=== PATIENT | female | born 2000 | race Caucasian/White ===

== ENCOUNTER 2021-12-17 14:04 | Outpatient (CLI) | payer OTHER, SELFPAY ==
--- NOTE | ~2021-12-17 | US_ITS ---
US thyroid INDICATION: Nontoxic thyroid goiter TECHNIQUE: Real-time sonographic images of the thyroid gland were obtained. COMPARISON: No prior studies for comparison. FINDINGS: The right thyroid lobe measures 4.8 x 1.4 x 2.3 cm. The left thyroid lobe measures 5.3 x 1 .9 x 2.5 cm. There is diffusely heterogeneous echotexture and echogenicity throughout the thyroid gla nd. In the left lobe there is a 1.3 x 0.8 x 1.3 cm solid hyperechoic, wider than tall, smoothly nabil nated mass without punctate echogenic foci, TR 3. There is increased vascularity in both lobes. IMPRESSION: 1. Enlarged heterogeneous thyroid gland with increased vascularity, consistent with thyroiditis. 2: Left thyroid nodule measuring 1.3 cm, TR 3. Consider follow-up ultrasound in 12 months. Reviewed, dictated and finalized at location A.
== END 2021-12-17 14:05 | disposition home or self-care (01) ==
PROVIDERS: PCP Family Medicine; Visit Provider Family Medicine
DX: E04.9 Nontoxic goiter, unspecified (principal)
CPT/HCPCS: 76536

== ENCOUNTER 2022-06-23 03:02 | Emergency (ER) | payer OTHER, SELFPAY ==
[2022-06-23 03:04] VITALS: BP 126/71; PULSE 83; RESP 20; TEMP 37; O2SAT 100
--- NOTE | 2022-06-23 04:23 | ED.GENADULT ---
HPI - General Adult General Chief complaint: Allergic Reaction Stated complaint: allergic reaction Time Seen by Provider: 06/23/22 04:11 History of Present Illness HPI narrative: Patient 21-year-old female presents emerged from with chief complaint of medication side effect. Patient reports that she was started on venlafaxine by her primary care provider and states that she took her Adderall today and also took the medication. Patient states that she has been feeling jittery and reports that she feels a little shaky with this. The patient states she feels a little off as well patient denies fever denies clonus denies visual changes Related Data Allergies Allergy/AdvReac Type Severity Reaction Status Date / Time No Known Allergies Allergy Mild Verified 06/23/22 03:58 Review of Systems Review of Systems: A 10 system review of systems was completed on the patient and is negative except for what is stated in the HPI. Nursing and ancillary documentation was reviewed. [facility] Past Medical History Medical History IRENE (generalized anxiety disorder) MDD (major depressive disorder), recurrent episode Family History Family History Other Hypertension Social History Social History Social History: Single Smoking status: Never smoker Second hand tobacco smoke exposure: No Alcohol intake: never Substance use: never Substance use type: does not use Living arrangements: with family Occupation/Education: occupation Gender identity (if verbalized by the patient): Female Exam Narrative: GENERAL: Well-appearing, well-nourished, and in no acute distress. HEAD: Normocephalic, atraumatic. EYES: PERRLA and EOMI. ENT: Nares clear, no rhinorrhea or epistaxis. Mucous membranes moist. NECK: Supple. CHEST: Clear to auscultation. No respiratory distress. HEART: Regular rate and rhythm. No murmur heard. Normal peripheral pulses. ABDOMEN: Soft, nontender, nondistended, normal active bowel sounds. EXTREMITIES: Normal range of motion. No edema. SKIN: Warm, dry, no rash. NEURO: No focal deficits. Alert and oriented x3. PSYCH: Normal mood and affect. Course Vital Signs Vital signs: Vital Signs Temperature 37.0 C 06/23/22 03:04 Pulse Rate 83 06/23/22 03:04 Respiratory Rate 20 06/23/22 03:04 Blood Pressure 126/71 06/23/22 03:04 Pulse Oximetry 100 06/23/22 03:04 Oxygen Delivery Room Air 06/23/22 03:04 Temperature 37.0 C 06/23/22 03:04 Pulse Rate 83 06/23/22 03:04 Respiratory Rate 20 06/23/22 03:04 Blood Pressure 126/71 06/23/22 03:04 Pulse Oximetry 100 06/23/22 03:04 Oxygen Delivery Room Air 06/23/22 03:04 Medical Decision Making MDM Narrative Medical decision making narrative: Differential diagnosis includes serotonin syndrome, medication side effect, The patient is currently not showing any signs of hyperthermia, is not tachycardic showing no signs of clonus or evidence of agitation diaphoresis or hypertonia. And no tremor and no hyperreflexia at this time the patient does not meet criteria for serotonin syndrome. Vital Signs Vital Signs: Vital Signs Temperature 37.0 C 06/23/22 03:04 Pulse Rate 83 06/23/22 03:04 Respiratory Rate 20 06/23/22 03:04 Blood Pressure 126/71 06/23/22 03:04 Pulse Oximetry 100 06/23/22 03:04 Oxygen Delivery Room Air 06/23/22 03:04 Temperature 37.0 C 06/23/22 03:04 Pulse Rate 83 06/23/22 03:04 Respiratory Rate 20 06/23/22 03:04 Blood Pressure 126/71 06/23/22 03:04 Pulse Oximetry 100 06/23/22 03:04 Oxygen Delivery Room Air 06/23/22 03:04 Discharge Plan Discharge Clinical Impression: Medication side effect Patient Disposition: Home, Self-Care Condition: Stable Instructions: Antibiotic F
[2022-06-23 04:34] VITALS: BP 118/69; PULSE 69; RESP 18; TEMP 36.6; O2SAT 99
== END 2022-06-23 04:35 | disposition home or self-care (01) ==
PROVIDERS: Emergency Provider Emergency Medicine; PCP Family Medicine
DX: T88.7XXA Unspecified adverse effect of drug or medicament, initial encounter (principal); T43.215A Adverse effect of selective serotonin and norepinephrine reuptake inhibitors, initial encounter
CPT/HCPCS: 99281

== ENCOUNTER 2022-12-10 15:07 | Outpatient (CLI) | payer OTHER, SELFPAY ==
--- NOTE | ~2022-12-10 | XR_ITS ---
EXAMINATION: XR abdomen obstructive series DATE: 12/10/2022 15:32 INDICATION: Abdominal distention TECHNIQUE: Upright and supine views of the abdomen were obtained. COMPARISON: None. FINDINGS: No free intraperitoneal gas or evidence of bowel obstruction. The bowel gas pattern is norm al. There are phleboliths of the pelvis. IMPRESSION: 1. Nonobstructive bowel gas pattern. Reviewed, dictated and finalized at location F.
== END 2022-12-10 15:08 | disposition home or self-care (01) ==
PROVIDERS: PCP Family Medicine; Visit Provider Family Medicine
DX: R14.0 Abdominal distension (gaseous) (principal)
CPT/HCPCS: 74019

== ENCOUNTER 2023-01-07 10:09 | Outpatient (CLI) | payer OTHER, SELFPAY ==
--- NOTE | ~2023-01-07 | US_ITS ---
Thyroid ultrasound. Clinical History: Nontoxic goiter COMPARISON: 12/17/2021 Findings: Real-time sonography of the thyroid gland was performed. The right lobe measures 5.4 x 2.4 x 2.1 cm. The left lobe measures 5.4 x 2.3 x 2.0 cm. The isthmus is 5 mm in AP diameter. Thyroid parenchyma is diffusely heterogeneous, with relative hypervascularity throughout the gland. T here is a 1.7 x 1.2 x 1.5 cm solid, hyperechoic circumscribed nodule at the left lower pole. Impression: 1.7 cm hyperechoic solid nodule at the left lower pole, mildly increased from prior exam. Continued a nnual follow-up advised. Reviewed, dictated and finalized at location M. Impression: 1.7 cm hyperechoic solid nodule at the left lower pole, mildly increased from p rior exam. Continued annual follow-up advised.
== END 2023-01-07 10:10 | disposition home or self-care (01) ==
PROVIDERS: PCP Family Medicine; Visit Provider Physician Assistant
DX: E04.9 Nontoxic goiter, unspecified (principal)
CPT/HCPCS: 76536

== ENCOUNTER 2023-01-20 19:44 | Emergency (ER) | payer OTHER, SELFPAY ==
--- NOTE | ~2023-01-20 | CT_ITS ---
EXAMINATION: CT abdomen pelvis w con INDICATION: Lower abdominal pain TECHNIQUE: Computed tomographic images of the abdomen and pelvis were obtained after the administrati on of 100 cc of Omnipaque 350 intravenous contrast. The dose-length product (DLP) was 775.45 mGy-cm. Automated exposure control and iterative reconstruction technique were employed. COMPARISON: None available FINDINGS: The lung bases are clear. The heart size is normal. The liver, spleen, pancreas, gallbladde r, and adrenal glands are normal. The kidneys are unremarkable. No pathologically enlarged abdominal or pelvic lymph nodes are identified. No free intraperitoneal gas or evidence of bowel obstruction. T he appendix is normal. A moderate volume of colonic stool is present in the right colon. IMPRESSION: 1. No CT correlate for the patient's symptoms. Reviewed, dictated and finalized at location F.
[2023-01-20 19:45] VITALS: BP 131/81; PULSE 110; RESP 16; TEMP 37.4; O2SAT 100
[2023-01-20 21:04] LABS: Basophils Absolute Auto 0.1 K/mm3 (0.0-0.1); Basophils Percent Auto 0.6 % (0.2-1.2); Eosinophils Absolute Auto 0.1 K/mm3 (0-0.3); Eosinophils Percent Auto 1.5 % (0-4.4); Hematocrit 41.7 % (37.0-47.0); Hemoglobin 13.3 g/dL (12.0-15.0); Immature Granulocyte Absolute 0.02 K/mm3 (0.00-0.031); Immature Granulocyte Percent A 0.2 % (0-0.5); Lymphocytes Absolute Auto 2.42 K/mm3 (0.9-3.2); Lymphocytes Percent Auto 25.4 % (18.3-44.2); Mean Corpuscular HGB Conc 31.9 g/dl (32-36); Mean Corpuscular Hemoglobin 27.9 pg (26-34); Mean Corpuscular Volume 87.4 fl (80-100); Mean Platelet Volume 12.2 fl (7.4-10.4); Monocytes Absolute Auto 0.6 K/mm3 (0.1-0.6); Monocytes Percent Auto 6.1 % (2.6-8.5); Neutrophils Absolute Auto 6.3 K/mm3 (1.3-6.7); Neutrophils Percent Auto 66.2 % (45.5-73.1); Platelet Count Result 256 k/mm3 (150-375); Red Blood Count 4.77 M/mm3 (4.2-5.4); Red Cell Distribution Width 13.9 % (11.5-14.5); White Blood Count 9.5 K/mm3 (4.5-10.0)
[2023-01-20 21:06] VITALS: BP 130/70; PULSE 97; RESP 16; O2SAT 100
[2023-01-20 21:07] LABS: Appearance Urine Clear (Clear); Bilirubin Urine Negative (Negative); Blood Urine Negative (Negative); Color Urine Yellow (Yellow); Glucose Urine UA Negative (Negative); Ketones Urine Trace mg/dL (Negative); Leukocyte Esterase Ur Negative LEU/UL (Negative); Nitrate Urine Negative (Negative); Protein Urine Negative (Negative); Specific Grav Ur 1.013 (1.001-1.035); Urobilinogen Urine 0.2 mg/dL (<2.0); pH Urine 7.5 (5.0-9.0)
[2023-01-20 21:08] LABS: Add Urine Microscopic? NO
[2023-01-20 21:16] LABS: Alanine Aminotransferase 19 U/L (6-35); Albumin Level 5.1 g/dL (3.5-5.1); Alkaline Phosphatase 71 U/L (38-126); Anion Gap 13 mmol/L (8-16); Aspartate Amino Transferase 23 U/L (14-36); Bilirubin,Total 0.6 mg/dL (0.2-1.3); Blood Urea Nitrogen 12 mg/dL (7-17); Calcium 9.8 mg/dL (8.4-10.2); Carbon Dioxide 21 mmol/L (22-30); Chloride 104 mmol/L (98-107); Estimated CRCL calculation 101 ml/min; Estimated Glomerular Filt Rate > 60; Glucose 91 mg/dL (65-110); Lipase 66 U/L (23-300); Potassium 3.9 mmol/L (3.4-5.0); Sodium 138 mmol/L (137-145)
--- NOTE | 2023-01-20 21:37 | ED.ABDPAIN ---
HPI - Abdominal Pain General Chief Complaint: Abdominal Pain Stated Complaint: abd pain Time Seen by Provider: 01/20/23 20:59 Source: patient and family (mother) Limitations: no limitations History of Present Illness HPI narrative: Patient is a 22-year-old female present to the emergency department accompanied by her mother for lower abdominal pain. Patient dates the pain has been present for approximately the past 1 month and she has been seen as an outpatient for this and was told likely constipation and for which has been taking stool softeners and has been having intermittently regular bowel movements but still having persistent pain. Patient was that the pain is constant, unchanged since onset, dull, aching, lower abdominal diffusely, worse when she presses on it, has not noticed any thing making her pain better aside from passing gas, did try ibuprofen this morning without any significant relief, has noticed that it is slightly worse whenever she is on her menstrual cycle, notes that her last menstrual period was a couple weeks ago. Patient admits to 2 episodes of shooting pain in the same region once yesterday and once again this morning that lasted a second and has gone away without any reoccurrence. Patient notes that she is trying to get referral to a GI doctor and satellite tv installer but has not obtained one yet and would like referral. Patient notes that she has also been told she may have reflux and is taking omeprazole regularly. Patient admits to frequent urination but also admits to consuming a lot of water. Patient has tried elimination diets. Patient denies vaginal discharge, vaginal bleeding, dysuria, hematuria, history of kidney stones, urinary urgency, nausea, vomiting, chest pain, shortness of breath, cough, fever, recent injuries, recent illness, back pain, sore throat, weight loss, new or changed medications. Related Data Allergies Allergy/AdvReac Type Severity Reaction Status Date / Time venlafaxine [From Effexor] Allergy Anxiety Verified 01/20/23 20:55 Review of Systems Review of Systems: A 10 system review of systems was completed on the patient and is negative except for what is stated in the HPI. Nursing and ancillary documentation was reviewed. [facility] Past Medical History Medical History IRENE (generalized anxiety disorder) MDD (major depressive disorder), recurrent episode Family History Family History Other Hypertension Social History Social History Social History: Single Smoking status: Never smoker Second hand tobacco smoke exposure: No Alcohol intake: never Substance use: never Substance use type: does not use Lack of Transportation: No Lack of Food: Never True Current Housing: I Have Housing Concerned About Future Housing: No Difficulty Paying Gas/Electric Bills: No Difficulty Paying for Meds: No Currently Unemployed: No Education: Decline to Answer Difficulty w/ Childcare or Family Care: No Living arrangements: with family Occupation/Education: occupation Gender identity (if verbalized by the patient): Female Sexual Orientation (if Verbalized by the Patient): Straight or Heterosexual Comments At time of signature, I have reviewed and agree with nursing past medical, surgical, social and family history unless otherwise noted. Please see the nursing chart for further information. There is no relevant family history pertinent to the presenting complaint. Exam Narrative: CONST: No acute distress. Well nourished. HENMT: Head is normocephalic and atraumatic. Moist mucous membranes. No posterior oropharynx erythema. EYES: No conjunctival icterus, injection, or pallor. PERRL. NECK: No meningeal signs. RESP: Able to speak in full sentences. Normal respiratory effort. CTAB. CARDIO: Regul
--- NOTE | 2023-01-20 23:05 | PC.NURSE ---
Report from AGUSTIN Patel. Awaiting CT results
[2023-01-20 23:36] VITALS: BP 133/78; PULSE 85; RESP 16; O2SAT 99
== END 2023-01-20 23:44 | disposition home or self-care (01) ==
PROVIDERS: Emergency Medicine; Emergency Provider Student in an Organized Health Care Education/Training Program; PCP Family Medicine
DX: K59.00 Constipation, unspecified (principal)
CPT/HCPCS: 36415; 74177; 80053; 81003; 81025; 83690; 85025; 99284; Q9967

== ENCOUNTER 2023-07-06 01:19 | Day surgery (SDC) | payer OTHER, SELFPAY ==
[2023-06-21 12:45] VITALS: BMI 33.7
--- NOTE | 2023-07-06 11:34 | P.PNAN_ITS ---
Anes - Initial Pre Proc Eval Procedure: Operation Date: 07/06/23 14:30 Proposed Procedures p Esophagogastroduodenoscopy & Colonoscopy - James Quezada MD Date/Time: 07/06/23 11:34 Surgeon: James Quezada MD Pre Op Diagnosis: Change in bowel habit, right lower quadrant pain, Patient Data Age: 22 Gender: F Height: 1.6 m Weight: 86.5 kg Allergies Allergy/AdvReac Type Severity Reaction Status Date / Time venlafaxine [From Effexor] AdvReac Mild Anxiety Verified 07/06/23 11:37 Home Medications Medication Instructions Recorded Confirmed Type polyethylene glycol 3350 17 17 g PO DAILY #119 grams 01/20/23 06/21/23 Rx gram/dose oral powder (Miralax) sertraline 50 mg tablet (Zoloft) 50 mg PO DAILY 05/10/23 06/21/23 History linaclotide 72 mcg capsule 72 mcg PO DAILY 1 month #30 caps 06/09/23 06/21/23 Rx (Linzess) omeprazole 40 mg capsule,delayed See Rx Instructions .Route 07/04/23 Rx release .COMPLEX #90 caps Patient hx anesthesia problems: none Family hx anesthesia problems: none Results Review: All pre-operative results and documents have been reviewed as part of the pre- operative evaluation. [facility] Past Medical History Medical History (Updated 06/01/23 @ 10:54 by ROSITA AceN-C) Bilateral lower abdominal cramping Bowel habit changes Epigastric pain IRENE (generalized anxiety disorder) Loose stools MDD (major depressive disorder), recurrent episode Nausea Family History Family History Other Hypertension Social History Social History Social History: Single Smoking status: Never smoker Second hand tobacco smoke exposure: No Alcohol intake: never Alcohol use details: occasional Substance use: current Substance use type: marijuana Other substance usage details: 2-3 times week Lack of Transportation: No Lack of Food: Never True Current Housing: I Have Housing Concerned About Future Housing: No Difficulty Paying Gas/Electric Bills: No Difficulty Paying for Meds: No Currently Unemployed: No Education: Decline to Answer Difficulty w/ Childcare or Family Care: No Living arrangements: with family Occupation/Education: occupation Gender identity (if verbalized by the patient): Female Sexual Orientation (if Verbalized by the Patient): Straight or Heterosexual Spiritual care concerns: No Anes - Eval Final PreProcedure Day of Procedure 07/06/23 11:34 Patient weight: obese Heart: regular rate and rhythm Lungs: clear to auscultation Airway: Mallampati scale class II Neurological: alert and oriented Last oral intake: >/= 8 hours ASA classification: II Emergent: no Anesthetic plan: proceed Anesthesia type and monitoring: general GIVS and standard monitoring Other findings: Change in bowel habits, abdominal pain, now for EGD/colonscopy. Results Review: All pre-operative results and documents have been reviewed as part of the pre- operative evaluation. Informed Consent: The patient's anesthetic plan and its attendant risks and benefits were discussed with the patient/family/POA. Questions were solicited and answers provided to the satisfaction of the patient/family/POA.
[2023-07-06 11:37] VITALS: BP 116/75; PULSE 79; RESP 19; TEMP 36.5; O2SAT 100
[2023-07-06] MEDS: LACTATED RINGERS 1,000 ML 150 ML IV CONT (11:49)
--- NOTE | 2023-07-06 11:58 | PM.HPGS ---
History of Present Illness History of Present Illness Consent: Risks, benefits, and alternatives have been discussed and questions answered. Patient agrees to proceed with procedure. Chief complaint: Change in bowel habit, right lower quadrant pain, Narrative: May Damon is a 22 year old female here for egd and colonoscopy, never had scopes. History of GERD on ppi, also constipation with intermittent abdominal pain using linzess. Review of Systems Review of Systems: All systems reviewed & are unremarkable except as noted in HPI and below PMFSH Past Medical History Medical History (Updated 06/01/23 @ 10:54 by Tri Graham APN-C) Bilateral lower abdominal cramping Bowel habit changes Epigastric pain IRENE (generalized anxiety disorder) Loose stools MDD (major depressive disorder), recurrent episode Nausea Family History Family History Other Hypertension Social History Social History Social History: Single Smoking status: Never smoker Second hand tobacco smoke exposure: No Alcohol intake: never Alcohol use details: occasional Substance use: current Substance use type: marijuana Other substance usage details: 2-3 times week Lack of Transportation: No Lack of Food: Never True Current Housing: I Have Housing Concerned About Future Housing: No Difficulty Paying Gas/Electric Bills: No Difficulty Paying for Meds: No Currently Unemployed: No Education: Decline to Answer Difficulty w/ Childcare or Family Care: No Living arrangements: with family Occupation/Education: occupation Gender identity (if verbalized by the patient): Female Sexual Orientation (if Verbalized by the Patient): Straight or Heterosexual Spiritual care concerns: No Meds Home Medications and Allergies Home Medications Medication Instructions Recorded Confirmed Type polyethylene glycol 3350 17 17 g PO DAILY #119 grams 01/20/23 06/21/23 Rx gram/dose oral powder (Miralax) sertraline 50 mg tablet (Zoloft) 50 mg PO DAILY 05/10/23 06/21/23 History linaclotide 72 mcg capsule 72 mcg PO DAILY 1 month #30 caps 06/09/23 06/21/23 Rx (Linzess) omeprazole 40 mg capsule,delayed See Rx Instructions .Route 07/04/23 Rx release .COMPLEX #90 caps Allergies Allergy/AdvReac Type Severity Reaction Status Date / Time venlafaxine [From Effexor] AdvReac Mild Anxiety Verified 07/06/23 11:37 Vital Signs Vital Signs - 24 hr 07/06/23 11:37 Temperature 97.7 F Pulse Rate 79 Respiratory Rate 19 Blood Pressure 116/75 Pulse Oximetry 100 Oxygen Delivery Room Air Exam Const: General: comfortable and no acute distress HENMT: Face/Nose/Sinus: Normal nares present Eyes: General: appearance normal, both eyes and all related structures Neck: Neck: no JVD Resp: Auscultation: clear to auscultation bilaterally Cardio: Rate: regular rate Rhythm: regular rhythm GI: Inspection: non-distended GI Palp: Yes Soft to palpation Skin: General skin exam: normal color Neuro: General: gait normal Speech: normal speech Extrem: General: normal to inspection Psych: Mental Status: mental status grossly normal Assessment and Plan Assessment and plan (1) Epigastric pain: Code(s): R10.13 - Epigastric pain Status: Acute Assessment and Plan: egd with bx (2) Bloating: Code(s): R14.0 - Abdominal distension (gaseous) Status: Acute (3) Constipation: Qualifiers: Constipation type: unspecified constipation type Qualified Code(s): K59.00 - Constipation, unspecified Code(s): K59.00 - Constipation, unspecified Status: Inactive Assessment and Plan: colonoscopy (4) Abdominal pain: Qualifiers: Abdominal location: lower abdomen, unspecified Qualified Code(s): R10.30 - Lower abdominal pain, unspecified
[2023-07-06] MEDS: BENZOCAINE (*SP) 60 ML SPRAY CAN (HURRICAINE) 1 SPRAY MUCOUS MEM (12:03)
--- NOTE | 2023-07-06 12:16 | SUR.OPER ---
EGD ended 1210, colonoscopy stared 121
[2023-07-06 12:28] VITALS: BP 100/54; PULSE 70; RESP 21; O2SAT 100
[2023-07-06 12:38] VITALS: BP 116/58; PULSE 60; RESP 17; O2SAT 100
[2023-07-06 12:48] VITALS: BP 113/66; PULSE 58; RESP 18; O2SAT 100
== END 2023-07-06 13:04 | disposition home or self-care (01) ==
PROVIDERS: PCP Family Medicine; Visit Provider Internal Medicine Gastroenterology
PROC: 0DJ08ZZ Inspection of Upper Intestinal Tract, Via Natural or Artificial Opening Endoscopic (ICD-10-PCS; CPT 43235; principal; 2023-07-06 14:30)
DX: K21.00 Gastro-esophageal reflux disease with esophagitis, without bleeding (principal); K59.00 Constipation, unspecified; F41.1 Generalized anxiety disorder; F33.9 Major depressive disorder, recurrent, unspecified; F12.90 Cannabis use, unspecified, uncomplicated; E66.9 Obesity, unspecified; Z68.35 Body mass index [BMI] 35.0-35.9, adult
CPT/HCPCS: 45378; 43239; 88305; J2704; J7120

== ENCOUNTER 2023-07-26 13:45 | Outpatient (CLI) | payer OTHER, SELFPAY ==
--- NOTE | ~2023-07-26 | XR_ITS ---
XR abdomen/kub 1V 07/26/2023 14:03 INDICATION: Right lower quadrant pain TECHNIQUE: KUB COMPARISON: 12/10/2022 FINDINGS: Bowel gas pattern is normal. There is no evidence of free air, mass, organomegaly, ascites or obstruction. No abnormal calculi are seen. There are pelvic phleboliths. The bones appear intact . IMPRESSION: 1: No acute abdominal abnormality identified. Reviewed, dictated and finalized at location B.
== END 2023-07-26 13:46 | disposition home or self-care (01) ==
PROVIDERS: PCP Family Medicine; Visit Provider Nurse Practitioner Family
DX: R10.31 Right lower quadrant pain (principal)
CPT/HCPCS: 74018

== ENCOUNTER 2023-10-02 18:19 | Emergency (ER) | payer OTHER, SELFPAY ==
--- NOTE | ~2023-10-02 | CT_ITS ---
Clinical Indication: Pulmonary embolus CT Scan of the Chest with Contrast: Technique: Contiguous sections were acquired throughout the chest after intravenous administration of 100 cc of Omnipaque 350. Dose reduction technique was used on this scan by utilizing automated expos ure control and iterative reconstruction technique. The dose-length product (DLP) was 571.37 mGy-cm. Findings: There is no evidence of any significant mediastinal, hilar or axillary lymphadenopathy. There is no f illing defect in the pulmonary arterial tree to suggest pulmonary embolus. There is no evidence of ao rtic dissection or aneurysm. There is no evidence of pleural or pericardial effusion. There is dense consolidation of the lingula. No other pulmonary abnormality seen. Images through the upper abdomen reveal no abnormalities. Impression: No evidence of pulmonary embolus, aortic dissection, or aortic aneurysm. Lingular pneumonia versus atelectasis. Correlate clinically. Reviewed, dictated and finalized at [facility]. Impression: No evidence of pulmonary embolus, aortic dissection, or aortic aneurysm. Lingular pneumonia versus atelectasis. Correlate clinically.
--- NOTE | ~2023-10-02 | XR_ITS ---
EXAMINATION: XR chest 2V Exam Date/Time: 10/02/2023 21:42 CDT HISTORY: shortness of breath, Pt states she has covid Comparison: 01/08/2013. RESULT: Lines, tubes, and devices: None. Lungs and pleura: Clear. Cardiomediastinal silhouette: Stable. Other: No acute osseous or upper abdominal finding. IMPRESSION: No acute cardiopulmonary process. Reviewed, dictated and finalized at location K.
--- NOTE | ~2023-10-02 | XR_ITS ---
EXAM: XR shoulder LT min 2V DATE: 10/02/2023 21:49 HISTORY: pain . COMPARISON: X-ray chest 01/08/2013. FINDINGS: Normal mineralization. No fracture or dislocation. No lytic or blastic lesion. Joint space s are maintained. No erosion or periosteal change. Soft tissues within normal limits. IMPRESSION: No acute osseous finding in the left shoulder. Reviewed, dictated and finalized at location K.
[2023-10-02 18:20] VITALS: BP 121/81; PULSE 143; RESP 18; TEMP 36.7; O2SAT 99
--- NOTE | 2023-10-02 18:29 | ECG_ITS ---
Test Date: 2023-10-02 18:37:45 Measurements Intervals [place] Rate: 138 P: 56 WV: 128 QRS: 25 QRSD: 88 T: 39 QT: 329 QTc: 499 Interpretive Statements SINUS TACHYCARDIA NONSPECIFIC ST-T WAVE ABNORMALITY- ANT/INF LEADS BASELINE ARTIFACT- I, III, AVR, AVL, V2 ABNORMAL ECG No previous ECG available for comparison Electronically Signed On 10-03-2023 08:24:41 CDT by Cy Kingsley D.O.
--- NOTE | 2023-10-02 19:09 | ED.URI ---
HPI - URI/Sore Throat General Chief Complaint: Upper Respiratory Infection Stated Complaint: fever, covid positive Time Seen by Provider: 10/02/23 19:08 History of Present Illness HPI Narrative: Patient is a 23 year old female with history of depression, anxiety, ADHD here with flu like symptoms and a home positive COVID test. Patient notes that she began having symptoms 4 days ago including fever, body aches, cough and sore throat. She notes fevers at home have been running between 99F-105F. She took some Advil (last dose 3PM), Mucinex and Peptobismol over the last few days for her symptoms with some improvement of symptoms. She notes the escalating fevers are what prompted her ER visit. 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 Her cough is productive in nature and associated with shortness of breath and pain with deep breaths around her left shoulder. She has had some associated nausea and diarrhea. Related Data Home Medications Medication Instructions Recorded Confirmed sertraline 50 mg tablet (Zoloft) 50 mg PO DAILY 05/10/23 09/07/23 Allergies Allergy/AdvReac Type Severity Reaction Status Date / Time venlafaxine [From Effexor] AdvReac Mild Anxiety Verified 10/02/23 18:23 Review of Systems Review of Systems: All systems reviewed & are unremarkable except as noted in HPI and below PMFSH Past Medical History Medical History Bilateral lower abdominal cramping Bowel habit changes Epigastric pain IRENE (generalized anxiety disorder) Loose stools MDD (major depressive disorder), recurrent episode Nausea Family History Family History Other Hypertension Social History Social History Social History: Single Smoking status: Never smoker Second hand tobacco smoke exposure: No Alcohol intake: never Alcohol use details: occasional Substance use: current Substance use type: marijuana Other substance usage details: 2-3 times week Lack of Transportation: No Lack of Food: Never True Current Housing: I Have Housing Concerned About Future Housing: No Difficulty Paying Gas/Electric Bills: No Difficulty Paying for Meds: No Currently Unemployed: No Education: Decline to Answer Difficulty w/ Childcare or Family Care: No Living arrangements: with family Occupation/Education: occupation Gender identity (if verbalized by the patient): Female Sexual Orientation (if Verbalized by the Patient): Straight or Heterosexual Spiritual care concerns: No Exam Narrative: GENERAL: Well-appearing, well-nourished, and in no acute distress. HEAD: Normocephalic, atraumatic. EYES: PERRLA and EOMI. ENT: Nares clear. Mucous membranes moist. NECK: Supple. CHEST: Clear to auscultation. No respiratory distress. HEART: Tachycardia. Normal peripheral pulses. ABDOMEN: Soft, nontender, nondistended. EXTREMITIES: Normal range of motion. No edema. No reproducible left shoulder tenderness or pain with ROM. SKIN: Warm, dry, no rash. NEURO: No focal deficits. Alert and oriented x3. PSYCH: Normal mood and affect. Course Course Emergency Course: Chart review performed. Patient here with nausea, vomiting, fever, shoulder pain x 4 days, positive for COVID yesterday. Triage vitals show tachycardia, otherwise normal. Initial lab work ordered in triage shows leukocytosis of 18.8, electrolytes and renal function normal. Elevated CRP to 7.7, Troponin and BNP normal. Patient seen and evaluated, non toxic appearing. She is tachycardic, has a positive home COVID test. I anticipate most of her symptoms are due to COVID however given her significant tachycardia and pleuritic pain into her left shoulder will do basic lab work and a screening d-dimer as well as sepsis lab work. CXR, Lt shoulder XR ordered. Morphine, zofran, tylenl and IVF ordered. Patient ag
[2023-10-02 19:24] LABS: Basophils Percent Auto 0.2 % (0.2-1.2); Hematocrit 37.4 % (37.0-47.0); Hemoglobin 12.4 g/dL (12.0-15.0); Immature Granulocyte Absolute 0.11 K/mm3 (0.00-0.031); Immature Granulocyte Percent A 0.6 % (0-0.5); Lymphocytes Absolute Auto 1.16 K/mm3 (0.9-3.2); Lymphocytes Percent Auto 6.2 % (18.3-44.2); Mean Corpuscular HGB Conc 33.2 g/dl (32-36); Mean Corpuscular Hemoglobin 27.3 pg (26-34); Mean Corpuscular Volume 82.2 fl (80-100); Mean Platelet Volume 11.4 fl (7.4-10.4); Monocytes Absolute Auto 1.7 K/mm3 (0.1-0.6); Monocytes Percent Auto 8.9 % (2.6-8.5); Neutrophils Absolute Auto 15.8 K/mm3 (1.3-6.7); Neutrophils Percent Auto 84.1 % (45.5-73.1); Platelet Count Result 224 k/mm3 (150-375); Red Blood Count 4.55 M/mm3 (4.2-5.4); Red Cell Distribution Width 15.2 % (11.5-14.5); White Blood Count 18.8 K/mm3 (4.5-10.0)
[2023-10-02 19:44] LABS: Alanine Aminotransferase 22 U/L (6-35); Albumin Level 4.7 g/dL (3.5-5.1); Alkaline Phosphatase 73 U/L (38-126); Anion Gap 14 mmol/L (4-12); Aspartate Amino Transferase 28 U/L (14-36); Blood Urea Nitrogen 16 mg/dL (7-17); CRP 7.7 mg/dL (<1.0); Calcium 9.5 mg/dL (8.4-10.2); Carbon Dioxide 22 mmol/L (22-30); Chloride 98 mmol/L (98-107); Estimated CRCL calculation 116 ml/min; Estimated Glomerular Filt Rate > 60; Glucose 111 mg/dL (65-110); Lipase 25 U/L (23-300); Potassium 3.6 mmol/L (3.4-5.0); Sodium 134 mmol/L (137-145)
[2023-10-02 19:50] LABS: NT Pro B Type Natriuretic Pept 185 pg/mL (19.9-100); Troponin I < 0.012 ng/mL (0.000-0.034)
[2023-10-02 20:04] LABS: Influenza A QL RT-PCR Negative (Negative); Influenza B QL RT-PCR Negative (Negative); RSV RNA, RT-PCR Negative (Negative); SARS-CoV-2 RNA PCR Positive (Negative)
[2023-10-02] MEDS: ACETAMINOPHEN 500 MG TABLET 1000 MG PO (20:16)
[2023-10-02] MEDS: ONDANSETRON INJ 4 MG/2 ML VIAL IV PUSH (20:16)
[2023-10-02 20:21] LABS: Lactic Acid Reflex 1.6 mmol/L (0.7-2.0)
[2023-10-02 20:27] VITALS: O2SAT 100
[2023-10-02 20:36] LABS: D Dimer 0.93 ug/mL (<0.48)
[2023-10-02 21:09] VITALS: BP 117/79; PULSE 135; RESP 20; O2SAT 99
[2023-10-02 21:17] VITALS: TEMP 38.1
--- NOTE | 2023-10-02 21:40 | PC.NURSE ---
Patient transferred to radiology via stretcher at this time.
[2023-10-02 22:13] VITALS: PULSE 118; RESP 20; O2SAT 100
[2023-10-02] MEDS: KETOROLAC 15 MG/ML VIAL (*BKC) IV PUSH (22:16)
[2023-10-02 22:17] LABS: Appearance Urine Clear (Clear); Bacteria Urine Rare /hpf; Bilirubin Urine Negative (Negative); Blood Urine Negative (Negative); Color Urine Yellow (Yellow); Glucose Urine UA Negative (Negative); Ketones Urine 4+ mg/dL (Negative); Leukocyte Esterase Ur Negative LEU/UL (Negative); Need Manual Microscopic Reviewed; Nitrate Urine Negative (Negative); Non Pathogenic Casts 0-2; Protein Urine 2+ mg/dL (Negative); RBC Urine 0-2 /hpf (0-2); Specific Grav Ur 1.031 (1.001-1.035); Squamous Epithelial Cell Urine Occasional /hpf (Few); WBC Urine 0-5 /hpf (0-3)
[2023-10-02] MEDS: LACTATED RINGERS 1,000 ML 999 ML IV CONT (22:17)
[2023-10-02 22:26] LABS: Add Urine Microscopic? YES
[2023-10-02 23:14] VITALS: BP 107/64; PULSE 110; RESP 20; TEMP 36.9; O2SAT 97
--- NOTE | 2023-10-02 23:42 | PC.NURSE ---
Patient ambulates to the bathroom and back to her room with a steady unassisted gait.
[2023-10-03 00:02] VITALS: BP 111/73; PULSE 98; RESP 20; O2SAT 97
[2023-10-03] MEDS: AMOXICILLIN 500 MG CAPSULE 1000 MG PO (00:29)
[2023-10-03 00:35] VITALS: BP 111/73; PULSE 98; RESP 19; O2SAT 98
== END 2023-10-03 00:36 | disposition home or self-care (01) ==
PROVIDERS: Emergency Provider Student in an Organized Health Care Education/Training Program; PCP Family Medicine
DX: U07.1 COVID-19 (principal); J18.9 Pneumonia, unspecified organism; F41.1 Generalized anxiety disorder; F32.9 Major depressive disorder, single episode, unspecified; Z79.899 Other long term (current) drug therapy
CPT/HCPCS: 36415; 71046; 71275; 73030; 80053; 81001; 81025; 83605; 83690; 83880; 84484; 85025; 85380; 86140; 87040; 87637; 93005; 96361; 96374; 96375; 99284; A9270; J1885; J2405; J7120; Q9967

== ENCOUNTER 2024-01-14 12:00 | Outpatient (CLI) | payer OTHER, SELFPAY ==
--- NOTE | ~2024-01-14 | US_ITS ---
Thyroid ultrasound. Clinical History: Thyroid nodule COMPARISON: 01/07/2023 Findings: Real-time sonography of the thyroid gland was performed. The right lobe measures 5.1 x 2.3 x 1.8 cm. The left lobe measures 5.4 x 2.4 x 2.2 cm. The isthmus is 4 mm in AP diameter. There is a 1.9 x 1.5 x 1.5 cm hyperechoic solid nodule at the left lower pole. Remaining thyroid pare nchyma is heterogeneous, without additional definite nodule. Impression: 1.9 cm TI-RADS 3 nodule in the left lowerpole, similar to prior exam. Reviewed, dictated and finalized at location . Impression: 1.9 cm TI-RADS 3 nodule in the left lowerpole, similar to prior exam.
== END 2024-01-14 12:01 | disposition home or self-care (01) ==
LOC: MICIMG 12:01
PROVIDERS: PCP Physician Assistant; Visit Provider Physician Assistant
DX: E04.1 Nontoxic single thyroid nodule (principal)
CPT/HCPCS: 76536